=== PATIENT | male | born 1955 | race Caucasian/White ===

== ENCOUNTER 2018-06-05 12:08 | Emergency (ER) | payer OTHER ==
[~2018-06-05] VITALS: Ht 188 cm; Wt 181.4 kg
[~2018-06-05 12:08] MED LIST: ASPI81TA31 PO; CLOP75TA15 PO; METOPROLOL PO
--- NOTE | 2018-06-05 12:47 | NUR ---
PATIENT IS AWAKE AND ALERT. STATES HE TOOK 3 NORCO PILLS FOR PAIN AND NOW FEELS VERY SLEEPY. STATES HE WAS NOT TRYING HURT HIMSELF AND HE AND FAMILY FEEL WORRIED THAT HE IS SLEEPY. HE IS ON CONTINUOUS CARDIAC MONITORING AND IS ON O2 VIA N/C.
[2018-06-05 12:56] LABS: BASOPHILS # (AUTO) 0.1 K/uL (0.0-8.0); BASOPHILS % (AUTO) 1.3 % (0.0-2.0); EOSINOPHILS # (AUTO) 0.3 K/uL (0.0-0.7); EOSINOPHILS % (AUTO) 5.4 % (0.0-7.0); HEMATOCRIT 48.2 % (36.7-47.1); HEMOGLOBIN 16.3 g/dL (12.5-16.3); LYMPHOCYTES # (AUTO) 1.6 K/uL (20.0-40.0); LYMPHOCYTES % (AUTO) 29.4 % (20.5-51.5); MEAN CORPUSCULAR HGB CONC 34 g/dL (32.5-36.3); MONOCYTES # (AUTO) 0.5 K/uL (2.0-10.0); MONOCYTES % (AUTO) 8.6 % (0.0-11.0); NEUTROPHILS # (AUTO) 3.1 K/uL (1.8-8.9); NEUTROPHILS % (AUTO) 55.3 % (38.5-71.5); PLATELET COUNT (AUTO) 168 K/uL (152-348); RED BLOOD CELL COUNT(AUTO) 5.61 MIL/uL (4.06-5.63); WHITE BLOOD COUNT (AUTO) 5.5 K/uL (3.6-10.2)
[2018-06-05 13:05] LABS: POTASSIUM 4.2 mmol/L (3.5-5.1)
--- NOTE | 2018-06-05 14:55 | NUR ---
DC AND FOLLOW UP INSTRUCTIONS GIVEN AND EXPLAINED TO PATIENT WHO STATES HE UNDERSTANDS ALL INSTRUCTIONS.
--- NOTE | 2018-06-05 14:55 | NUR ---
PATIENT IS FULLY AWAKE. SPO2 >97% ON RA. VSS.
== END 2018-06-05 15:10 | disposition home or self-care (01) ==
LOC: ER 12:10
DX: T39.1X1A Poisoning by 4-Aminophenol derivatives, accidental (unintentional), initial encounter (principal); I48.91 Unspecified atrial fibrillation; E78.5 Hyperlipidemia, unspecified; I25.10 Atherosclerotic heart disease of native coronary artery without angina pectoris; K21.9 Gastro-esophageal reflux disease without esophagitis; Z79.01 Long term (current) use of anticoagulants; Z79.82 Long term (current) use of aspirin; Z79.899 Other long term (current) drug therapy; Y92.89 Other specified places as the place of occurrence of the external cause
CPT/HCPCS: 36415; 70030-TC; 71045; 85025; 85730; 93005; A4663